=== PATIENT | female | born 1950 | race African-American/Black ===

== ENCOUNTER 2020-08-25 12:25 | Inpatient (IN) ==
[2020-08-25] MEDS ORDERED: SODIUM CHLORIDE 0.9% 1,000 ML IV STA (14:23)
[2020-08-25 15:00] LABS: Basophils % 0.3 % (0.0-0.8); Eosinophils % 0.3 % (0.00-10.9); Hematocrit 44.8 VOL% (35.7-47.0); Hemoglobin 15.7 GM/DL (12.0-16.0); Immature Granulocytes % 0.3 %; Immature Granulocytes Absolute 0.02 #; Lymphocytes # 1.8 10*3/uL (1.4-4.0); Lymphocytes % 27.9 % (21.3-54.2); Mean Corpuscular Volume 83.9 FL (87-102); Mean Platelet Volume 10.1 FL (9.6-12.0); Monocytes % 6.7 % (1.7-12.7); Neutrophils % 64.5 % (38.7-73.9); Platelet Count 177 T/CUMM (130-400); Red Blood Count 5.34 MC/CUMM (3.8-5.5); Red Cell Distribution Width 12.8 % (9.3-17.3); White Blood Count 6.5 T/CUMM (4-12)
[2020-08-25 15:21] LABS: PT Patient Result 11.1 SECS (9.8-11.9); Partial Thromboplastin Time 24.5 SECS (23.9-33.8)
[2020-08-25 15:23] LABS: Albumin 3.3 G/DL (3.4-5.0); Bilirubin,Total 0.4 MG/DL (0.2-1.0); Osmolality,Calculated 283.4 MOS/KG (273-304); Total Protein 7.1 G/DL (6.4-8.3)
[2020-08-25 16:09] LABS: Bilirubin,Urine Negative (Negative); Blood, Urine Small mg/dL (Negative); Glucose,Urine (UA) Negative (Negative); Ketones,Urine 5 mg/dL (Negative); Mucus,Urine Many /LPF (Occasional); Nitrite,Urine Negative (Negative); Protein,Urine 30 MG/DL; RBC,Urine 28 /HPF (0-4); Squamous Epithelial Cell,Urine Occasional /HPF (0-10); Urine Appearance Slightly Hazy (Clear); Urine Color Yellow (Yellow); Urine Specific Gravity 1.026 (1.001-1.035); Urine Urobilinogen < 2.0 EU/DL (0.2-1.0); WBC,Urine 15 /HPF (0-6)
[2020-08-25 16:12] LABS: Barbiturates Screen,Urine Negative (Negative); Benzodiazepines Screen,Urine Negative (Negative); Cannabinoid Screen,Urine Negative (Negative); Opiate Screen,Urine Negative (Negative); Phencyclidine Screen,Urine Negative (Negative)
[2020-08-25] MEDS ORDERED: ACETAMINOPHEN 325 MG TABLET PO PRN (18:41)
[2020-08-25] MEDS ORDERED: ONDANSETRON 4 MG/2 ML VIAL IV PRN (18:41)
[2020-08-25] MEDS ORDERED: GLUCAGON 1 MG VIAL IM PRN ×2 (18:41)
[2020-08-25] MEDS ORDERED: DEXTROSE 50% 25 GM/50 ML VIAL IV PRN ×2 (18:41)
[2020-08-25] MEDS ORDERED: SODIUM CHLORIDE 0.9% 100 ML IV ONE (20:07)
[2020-08-25] MEDS: cefTRIAXone 1,000 MG in SYRINGE 1 EACH IV SCH (20:15)
[2020-08-25] MEDS: SODIUM CHLOR 0.45% KCL 20 MEQ 20 MEQ/1,000 ML BAG IV SCH (21:52)
[2020-08-25] MEDS: INSULIN LISPRO 100 UNIT/ML SUBCUT SCH (21:52)
[2020-08-25] MEDS: hydrALAZINE 20 MG/1 ML VIAL IV PRN (22:13)
[2020-08-26] MEDS: SODIUM CHLOR 0.45% KCL 20 MEQ 20 MEQ/1,000 ML BAG IV SCH ×2 (06:00→15:31)
[2020-08-26 06:38] LABS: Basophils % 0.3 % (0.0-0.8); Eosinophils % 0.5 % (0.00-10.9); Hematocrit 40.9 VOL% (35.7-47.0); Hemoglobin 13.9 GM/DL (12.0-16.0); Immature Granulocytes % 1.6 %; Lymphocytes # 1.1 10*3/uL (1.4-4.0); Lymphocytes % 17.1 % (21.3-54.2); Mean Corpuscular Volume 84.7 FL (87-102); Mean Platelet Volume 10.4 FL (9.6-12.0); Monocytes % 3.8 % (1.7-12.7); Neutrophils % 76.7 % (38.7-73.9); Platelet Count 143 T/CUMM (130-400); Red Blood Count 4.83 MC/CUMM (3.8-5.5); Red Cell Distribution Width 12.8 % (9.3-17.3); White Blood Count 6.3 T/CUMM (4-12)
[2020-08-26 07:02] LABS: Calcium 8.4 MG/DL (8.5-10.1); Osmolality,Calculated 280.4 MOS/KG (273-304); Risk Ratio 2.14; Thyroid Stimulating Hormone 0.587 uIU/ml (0.358-3.74); VLDL CHOLESTEROL 14.4 MG/DL
[2020-08-26] MEDS: INSULIN LISPRO 100 UNIT/ML SUBCUT SCH ×4 (07:29→21:12)
[2020-08-26] MEDS: LISINOPRIL/HCTZ 10-12.5 MG TABLET PO SCH (08:54)
[2020-08-26] MEDS: PANTOPRAZOLE 40 MG TABLET PO SCH (08:54)
[2020-08-26] MEDS: MENTHOL/ZINC OXIDE OINT 71 GM JAR TOP SCH ×2 (15:31→21:11)
[2020-08-26] MEDS ORDERED: ENOXAPARIN 40 MG/0.4 ML SYRINGE SUBCUT SCH (17:00)
[2020-08-26] MEDS: ENOXAPARIN 40 MG/0.4 ML SYRINGE SUBCUT SCH (17:15)
[2020-08-26] MEDS: lisinopriL 20 MG TABLET PO SCH (17:15)
[2020-08-26] MEDS: cefTRIAXone 1,000 MG in SYRINGE 1 EACH IV SCH (18:50)
[2020-08-26] MEDS: DEXAMETHASONE 0.1% OPH SOLN 5 ML BOTTLE LEFT EYE SCH ×2 (18:50→21:12)
[2020-08-26] MEDS: METOPROLOL TARTRATE 100 MG TABLET PO SCH (21:12)
[2020-08-26] MEDS: OFLOXACIN 0.3% OPH SOLN 5 ML BOTTLE LEFT EYE SCH (21:12)
[2020-08-26] MEDS: ATORVASTATIN 10 MG TABLET PO SCH (21:12)
[2020-08-27] MEDS: SODIUM CHLOR 0.45% KCL 20 MEQ 20 MEQ/1,000 ML BAG IV SCH ×4 (00:59→21:35)
[2020-08-27] MEDS: INSULIN LISPRO 100 UNIT/ML SUBCUT SCH ×4 (07:21→21:41)
[2020-08-27] MEDS ORDERED: ASPIRIN 325 MG TABLET PO SCH (09:00)
[2020-08-27] MEDS: MENTHOL/ZINC OXIDE OINT 71 GM JAR TOP SCH ×2 (09:05→21:35)
[2020-08-27] MEDS: PANTOPRAZOLE 40 MG TABLET PO SCH (10:01)
[2020-08-27] MEDS: METOPROLOL TARTRATE 100 MG TABLET PO SCH ×2 (10:01→20:37)
[2020-08-27] MEDS: glipiZIDE 5 MG TABLET PO SCH (10:01)
[2020-08-27] MEDS: ASPIRIN EC 81 MG TABLET PO SCH (10:01)
[2020-08-27] MEDS: DEXAMETHASONE 0.1% OPH SOLN 5 ML BOTTLE LEFT EYE SCH ×4 (10:03→21:35)
[2020-08-27] MEDS: OFLOXACIN 0.3% OPH SOLN 5 ML BOTTLE LEFT EYE SCH ×2 (10:03→21:35)
[2020-08-27] MEDS: LISINOPRIL/HCTZ 10-12.5 MG TABLET PO SCH (10:05)
[2020-08-27] MEDS: lisinopriL 20 MG TABLET PO SCH (11:38)
[2020-08-27] MEDS: ENOXAPARIN 40 MG/0.4 ML SYRINGE SUBCUT SCH (18:18)
[2020-08-27] MEDS: cefTRIAXone 1,000 MG in SYRINGE 1 EACH IV SCH (18:24)
[2020-08-27] MEDS: ATORVASTATIN 10 MG TABLET PO SCH (20:38)
[2020-08-28] MEDS: hydrALAZINE 20 MG/1 ML VIAL IV PRN (04:17)
[2020-08-28 05:25] LABS: Basophils % 0.6 % (0.0-0.8); Eosinophils # 0.1 10*3/uL (0.0-0.87); Hematocrit 43.9 VOL% (35.7-47.0); Immature Granulocytes % 0.2 %; Immature Granulocytes Absolute 0.01 #; Lymphocytes # 1.4 10*3/uL (1.4-4.0); Lymphocytes % 28.2 % (21.3-54.2); Mean Corpuscular HGB Conc 34.2 GM/DL (32-36); Mean Corpuscular Volume 83.9 FL (87-102); Mean Platelet Volume 10.1 FL (9.6-12.0); Monocytes % 6.7 % (1.7-12.7); Neutrophils % 63.3 % (38.7-73.9); Platelet Count 188 T/CUMM (130-400); Red Blood Count 5.23 MC/CUMM (3.8-5.5); Red Cell Distribution Width 12.5 % (9.3-17.3); White Blood Count 5.1 T/CUMM (4-12)
[2020-08-28] MEDS: SODIUM CHLOR 0.45% KCL 20 MEQ 20 MEQ/1,000 ML BAG IV SCH ×2 (05:41→15:09)
[2020-08-28 05:56] LABS: Calcium 8.9 MG/DL (8.5-10.1); Osmolality,Calculated 277.5 MOS/KG (273-304)
[2020-08-28] MEDS: INSULIN LISPRO 100 UNIT/ML SUBCUT SCH ×4 (07:29→20:54)
[2020-08-28] MEDS: LISINOPRIL/HCTZ 10-12.5 MG TABLET PO SCH (08:58)
[2020-08-28] MEDS: lisinopriL 20 MG TABLET PO SCH (08:58)
[2020-08-28] MEDS: ASPIRIN EC 81 MG TABLET PO SCH (08:59)
[2020-08-28] MEDS: OFLOXACIN 0.3% OPH SOLN 5 ML BOTTLE LEFT EYE SCH ×2 (08:59→20:55)
[2020-08-28] MEDS: METOPROLOL TARTRATE 100 MG TABLET PO SCH ×2 (08:59→20:54)
[2020-08-28] MEDS: glipiZIDE 5 MG TABLET PO SCH (08:59)
[2020-08-28] MEDS: PANTOPRAZOLE 40 MG TABLET PO SCH (08:59)
[2020-08-28] MEDS: MENTHOL/ZINC OXIDE OINT 71 GM JAR TOP SCH ×2 (09:00→20:55)
[2020-08-28] MEDS: DEXAMETHASONE 0.1% OPH SOLN 5 ML BOTTLE LEFT EYE SCH ×4 (09:00→20:55)
[2020-08-28] MEDS: ENOXAPARIN 40 MG/0.4 ML SYRINGE SUBCUT SCH (18:08)
[2020-08-28] MEDS: cefTRIAXone 1,000 MG in SYRINGE 1 EACH IV SCH (19:20)
[2020-08-28] MEDS: ATORVASTATIN 10 MG TABLET PO SCH (20:54)
[2020-08-29] MEDS: SODIUM CHLOR 0.45% KCL 20 MEQ 20 MEQ/1,000 ML BAG IV SCH ×4 (00:22→20:58)
[2020-08-29] MEDS: hydrALAZINE 20 MG/1 ML VIAL IV PRN ×2 (02:21→18:28)
[2020-08-29 06:16] LABS: Basophils % 0.4 % (0.0-0.8); Eosinophils % 0.6 % (0.00-10.9); Hematocrit 43.8 VOL% (35.7-47.0); Immature Granulocytes % 0.4 %; Immature Granulocytes Absolute 0.02 #; Lymphocytes # 1.7 10*3/uL (1.4-4.0); Lymphocytes % 34.9 % (21.3-54.2); Mean Corpuscular HGB Conc 34.2 GM/DL (32-36); Mean Corpuscular Volume 84.6 FL (87-102); Mean Platelet Volume 10.4 FL (9.6-12.0); Monocytes % 8.3 % (1.7-12.7); Neutrophils % 55.4 % (38.7-73.9); Platelet Count 221 T/CUMM (130-400); Red Blood Count 5.18 MC/CUMM (3.8-5.5); Red Cell Distribution Width 12.6 % (9.3-17.3)
[2020-08-29 07:09] LABS: Osmolality,Calculated 278.4 MOS/KG (273-304)
[2020-08-29] MEDS: INSULIN LISPRO 100 UNIT/ML SUBCUT SCH ×4 (09:00→21:00)
[2020-08-29] MEDS: glipiZIDE 5 MG TABLET PO SCH (09:01)
[2020-08-29] MEDS: DEXAMETHASONE 0.1% OPH SOLN 5 ML BOTTLE LEFT EYE SCH ×4 (09:01→20:59)
[2020-08-29] MEDS: MENTHOL/ZINC OXIDE OINT 71 GM JAR TOP SCH ×2 (09:01→20:59)
[2020-08-29] MEDS: ASPIRIN EC 81 MG TABLET PO SCH (09:01)
[2020-08-29] MEDS: OFLOXACIN 0.3% OPH SOLN 5 ML BOTTLE LEFT EYE SCH ×2 (09:02→20:59)
[2020-08-29] MEDS: PANTOPRAZOLE 40 MG TABLET PO SCH (09:02)
[2020-08-29] MEDS: METOPROLOL TARTRATE 100 MG TABLET PO SCH ×2 (09:02→20:59)
[2020-08-29] MEDS: lisinopriL 20 MG TABLET PO SCH (09:02)
[2020-08-29] MEDS: LISINOPRIL/HCTZ 10-12.5 MG TABLET PO SCH (09:02)
[2020-08-29] MEDS: ENOXAPARIN 40 MG/0.4 ML SYRINGE SUBCUT SCH (17:30)
[2020-08-29] MEDS: cefTRIAXone 1,000 MG in SYRINGE 1 EACH IV SCH (18:31)
[2020-08-29] MEDS ORDERED: LACTULOSE 20 GM/30 ML UDCUP PO PRN (19:05)
[2020-08-29] MEDS: ATORVASTATIN 10 MG TABLET PO SCH (20:59)
[2020-08-30 05:36] LABS: Basophils % 0.6 % (0.0-0.8); Eosinophils % 0.6 % (0.00-10.9); Hematocrit 43.5 VOL% (35.7-47.0); Hemoglobin 14.8 GM/DL (12.0-16.0); Immature Granulocytes % 0.4 %; Immature Granulocytes Absolute 0.02 #; Lymphocytes # 1.6 10*3/uL (1.4-4.0); Mean Corpuscular Volume 84.8 FL (87-102); Mean Platelet Volume 9.9 FL (9.6-12.0); Monocytes % 7.8 % (1.7-12.7); Neutrophils % 61.6 % (38.7-73.9); Platelet Count 237 T/CUMM (130-400); Red Blood Count 5.13 MC/CUMM (3.8-5.5); Red Cell Distribution Width 12.9 % (9.3-17.3); White Blood Count 5.4 T/CUMM (4-12)
[2020-08-30 05:54] LABS: Calcium 9.1 MG/DL (8.5-10.1); Osmolality,Calculated 275.7 MOS/KG (273-304)
[2020-08-30] MEDS: lisinopriL 20 MG TABLET PO SCH (09:54)
[2020-08-30] MEDS: ASPIRIN EC 81 MG TABLET PO SCH (09:54)
[2020-08-30] MEDS: LISINOPRIL/HCTZ 10-12.5 MG TABLET PO SCH (09:54)
[2020-08-30] MEDS: MENTHOL/ZINC OXIDE OINT 71 GM JAR TOP SCH ×2 (09:55→21:15)
[2020-08-30] MEDS: PANTOPRAZOLE 40 MG TABLET PO SCH (09:55)
[2020-08-30] MEDS: OFLOXACIN 0.3% OPH SOLN 5 ML BOTTLE LEFT EYE SCH ×2 (09:55→21:15)
[2020-08-30] MEDS: METOPROLOL TARTRATE 100 MG TABLET PO SCH ×2 (09:55→21:15)
[2020-08-30] MEDS: glipiZIDE 5 MG TABLET PO SCH (09:55)
[2020-08-30] MEDS: DEXAMETHASONE 0.1% OPH SOLN 5 ML BOTTLE LEFT EYE SCH ×4 (09:56→21:15)
[2020-08-30] MEDS: INSULIN LISPRO 100 UNIT/ML SUBCUT SCH ×4 (10:19→21:15)
[2020-08-30] MEDS: SODIUM CHLOR 0.45% KCL 20 MEQ 20 MEQ/1,000 ML BAG IV SCH ×3 (14:24→21:24)
[2020-08-30] MEDS: ENOXAPARIN 40 MG/0.4 ML SYRINGE SUBCUT SCH (17:30)
[2020-08-30] MEDS: ATORVASTATIN 10 MG TABLET PO SCH (21:15)
[2020-08-31 04:14] LABS: Basophils % 0.5 % (0.0-0.8); Eosinophils # 0.1 10*3/uL (0.0-0.87); Eosinophils % 1.2 % (0.00-10.9); Hemoglobin 13.3 GM/DL (12.0-16.0); Immature Granulocytes % 0.2 %; Immature Granulocytes Absolute 0.01 #; Lymphocytes # 1.6 10*3/uL (1.4-4.0); Lymphocytes % 36.6 % (21.3-54.2); Mean Corpuscular HGB Conc 34.1 GM/DL (32-36); Mean Corpuscular Volume 85.2 FL (87-102); Mean Platelet Volume 10.2 FL (9.6-12.0); Monocytes % 7.8 % (1.7-12.7); Neutrophils % 53.7 % (38.7-73.9); Platelet Count 244 T/CUMM (130-400); Red Blood Count 4.58 MC/CUMM (3.8-5.5); White Blood Count 4.3 T/CUMM (4-12)
[2020-08-31 04:33] LABS: Calcium 8.7 MG/DL (8.5-10.1); Osmolality,Calculated 277.5 MOS/KG (273-304)
[2020-08-31] MEDS: SODIUM CHLOR 0.45% KCL 20 MEQ 20 MEQ/1,000 ML BAG IV SCH ×3 (05:34→23:22)
[2020-08-31] MEDS: INSULIN LISPRO 100 UNIT/ML SUBCUT SCH ×4 (08:08→20:53)
[2020-08-31] MEDS: MENTHOL/ZINC OXIDE OINT 71 GM JAR TOP SCH ×2 (09:19→20:54)
[2020-08-31] MEDS: DEXAMETHASONE 0.1% OPH SOLN 5 ML BOTTLE LEFT EYE SCH ×4 (09:19→20:54)
[2020-08-31] MEDS: OFLOXACIN 0.3% OPH SOLN 5 ML BOTTLE LEFT EYE SCH ×2 (09:19→20:54)
[2020-08-31] MEDS: LISINOPRIL/HCTZ 10-12.5 MG TABLET PO SCH (09:20)
[2020-08-31] MEDS: PANTOPRAZOLE 40 MG TABLET PO SCH (09:20)
[2020-08-31] MEDS: METOPROLOL TARTRATE 100 MG TABLET PO SCH ×2 (09:20→20:53)
[2020-08-31] MEDS: glipiZIDE 5 MG TABLET PO SCH (09:20)
[2020-08-31] MEDS: lisinopriL 20 MG TABLET PO SCH (09:20)
[2020-08-31] MEDS: ASPIRIN EC 81 MG TABLET PO SCH (09:20)
[2020-08-31] MEDS: TAMSULOSIN 0.4 MG CAPSULE PO SCH (12:35)
[2020-08-31] MEDS: ENOXAPARIN 40 MG/0.4 ML SYRINGE SUBCUT SCH (18:15)
[2020-08-31] MEDS: ATORVASTATIN 10 MG TABLET PO SCH (20:54)
[2020-09-01 06:10] LABS: Basophils % 0.2 % (0.0-0.8); Eosinophils % 0.7 % (0.00-10.9); Hematocrit 40.8 VOL% (35.7-47.0); Hemoglobin 13.7 GM/DL (12.0-16.0); Immature Granulocytes % 0.2 %; Immature Granulocytes Absolute 0.01 #; Lymphocytes # 1.8 10*3/uL (1.4-4.0); Lymphocytes % 40.9 % (21.3-54.2); Mean Corpuscular HGB Conc 33.6 GM/DL (32-36); Mean Corpuscular Volume 85.5 FL (87-102); Mean Platelet Volume 10.4 FL (9.6-12.0); Platelet Count 246 T/CUMM (130-400); Red Blood Count 4.77 MC/CUMM (3.8-5.5); Red Cell Distribution Width 12.8 % (9.3-17.3); White Blood Count 4.4 T/CUMM (4-12)
[2020-09-01 06:23] LABS: Osmolality,Calculated 277.5 MOS/KG (273-304)
[2020-09-01] MEDS: SODIUM CHLOR 0.45% KCL 20 MEQ 20 MEQ/1,000 ML BAG IV SCH ×3 (06:42→21:54)
[2020-09-01] MEDS: INSULIN LISPRO 100 UNIT/ML SUBCUT SCH ×4 (10:14→21:34)
[2020-09-01] MEDS: TAMSULOSIN 0.4 MG CAPSULE PO SCH (12:21)
[2020-09-01] MEDS: PANTOPRAZOLE 40 MG TABLET PO SCH (12:21)
[2020-09-01] MEDS: LISINOPRIL/HCTZ 10-12.5 MG TABLET PO SCH (12:21)
[2020-09-01] MEDS: ASPIRIN EC 81 MG TABLET PO SCH (12:22)
[2020-09-01] MEDS: lisinopriL 20 MG TABLET PO SCH (12:22)
[2020-09-01] MEDS: METOPROLOL TARTRATE 100 MG TABLET PO SCH ×2 (12:22→21:33)
[2020-09-01] MEDS: glipiZIDE 5 MG TABLET PO SCH (12:22)
[2020-09-01] MEDS: MENTHOL/ZINC OXIDE OINT 71 GM JAR TOP SCH ×2 (14:44→21:33)
[2020-09-01] MEDS: OFLOXACIN 0.3% OPH SOLN 5 ML BOTTLE LEFT EYE SCH ×2 (14:45→21:33)
[2020-09-01] MEDS: DEXAMETHASONE 0.1% OPH SOLN 5 ML BOTTLE LEFT EYE SCH ×4 (14:45→21:33)
[2020-09-01] MEDS: ENOXAPARIN 40 MG/0.4 ML SYRINGE SUBCUT SCH (20:06)
[2020-09-01] MEDS: ATORVASTATIN 10 MG TABLET PO SCH (21:33)
[2020-09-02 05:49] LABS: Basophils % 0.5 % (0.0-0.8); Eosinophils # 0.1 10*3/uL (0.0-0.87); Eosinophils % 1.2 % (0.00-10.9); Hematocrit 36.4 VOL% (35.7-47.0); Hemoglobin 12.1 GM/DL (12.0-16.0); Immature Granulocytes % 0.2 %; Immature Granulocytes Absolute 0.01 #; Lymphocytes # 1.5 10*3/uL (1.4-4.0); Mean Corpuscular HGB Conc 33.2 GM/DL (32-36); Mean Corpuscular Volume 86.1 FL (87-102); Mean Platelet Volume 10.3 FL (9.6-12.0); Monocytes % 5.9 % (1.7-12.7); NRBC # 0.03 10*3/uL; Neutrophils % 56.2 % (38.7-73.9); Platelet Count 239 T/CUMM (130-400); Red Blood Count 4.23 MC/CUMM (3.8-5.5); White Blood Count 4.1 T/CUMM (4-12)
[2020-09-02 06:11] LABS: Osmolality,Calculated 276.5 MOS/KG (273-304)
[2020-09-02] MEDS: SODIUM CHLOR 0.45% KCL 20 MEQ 20 MEQ/1,000 ML BAG IV SCH ×2 (06:18→16:27)
[2020-09-02] MEDS: INSULIN LISPRO 100 UNIT/ML SUBCUT SCH ×4 (08:18→21:27)
[2020-09-02] MEDS: lisinopriL 20 MG TABLET PO SCH (11:23)
[2020-09-02] MEDS: TAMSULOSIN 0.4 MG CAPSULE PO SCH (11:23)
[2020-09-02] MEDS: LISINOPRIL/HCTZ 10-12.5 MG TABLET PO SCH (11:23)
[2020-09-02] MEDS: METOPROLOL TARTRATE 100 MG TABLET PO SCH ×2 (11:23→21:26)
[2020-09-02] MEDS: OFLOXACIN 0.3% OPH SOLN 5 ML BOTTLE LEFT EYE SCH ×2 (11:23→21:26)
[2020-09-02] MEDS: DEXAMETHASONE 0.1% OPH SOLN 5 ML BOTTLE LEFT EYE SCH ×4 (11:24→21:26)
[2020-09-02] MEDS: glipiZIDE 5 MG TABLET PO SCH (11:24)
[2020-09-02] MEDS: MENTHOL/ZINC OXIDE OINT 71 GM JAR TOP SCH ×2 (11:24→21:26)
[2020-09-02] MEDS: ASPIRIN EC 81 MG TABLET PO SCH (11:24)
[2020-09-02] MEDS: CHOLECALCIFEROL 1,000 UNIT TABLET PO SCH (11:24)
[2020-09-02] MEDS: PANTOPRAZOLE 40 MG TABLET PO SCH (11:25)
[2020-09-02] MEDS: ENOXAPARIN 40 MG/0.4 ML SYRINGE SUBCUT SCH (19:01)
[2020-09-02] MEDS: ATORVASTATIN 10 MG TABLET PO SCH (21:26)
[2020-09-03] MEDS: SODIUM CHLOR 0.45% KCL 20 MEQ 20 MEQ/1,000 ML BAG IV SCH ×4 (00:39→20:28)
[2020-09-03 05:58] LABS: Basophils % 0.5 % (0.0-0.8); Eosinophils # 0.1 10*3/uL (0.0-0.87); Eosinophils % 1.6 % (0.00-10.9); Hematocrit 39.2 VOL% (35.7-47.0); Hemoglobin 13.1 GM/DL (12.0-16.0); Immature Granulocytes % 0.2 %; Immature Granulocytes Absolute 0.01 #; Lymphocytes # 1.7 10*3/uL (1.4-4.0); Lymphocytes % 38.5 % (21.3-54.2); Mean Corpuscular HGB Conc 33.4 GM/DL (32-36); Mean Platelet Volume 10.2 FL (9.6-12.0); Monocytes % 6.8 % (1.7-12.7); Neutrophils % 52.4 % (38.7-73.9); Platelet Count 259 T/CUMM (130-400); Red Blood Count 4.56 MC/CUMM (3.8-5.5); Red Cell Distribution Width 12.9 % (9.3-17.3); White Blood Count 4.4 T/CUMM (4-12)
[2020-09-03 06:18] LABS: Osmolality,Calculated 277.5 MOS/KG (273-304)
[2020-09-03] MEDS: METOPROLOL TARTRATE 100 MG TABLET PO SCH ×2 (11:05→20:30)
[2020-09-03] MEDS: LISINOPRIL/HCTZ 10-12.5 MG TABLET PO SCH (11:05)
[2020-09-03] MEDS: ASPIRIN EC 81 MG TABLET PO SCH (11:05)
[2020-09-03] MEDS: TAMSULOSIN 0.4 MG CAPSULE PO SCH (11:05)
[2020-09-03] MEDS: CHOLECALCIFEROL 1,000 UNIT TABLET PO SCH (11:05)
[2020-09-03] MEDS: PANTOPRAZOLE 40 MG TABLET PO SCH (11:05)
[2020-09-03] MEDS: lisinopriL 20 MG TABLET PO SCH (11:06)
[2020-09-03] MEDS: glipiZIDE 5 MG TABLET PO SCH (11:06)
[2020-09-03] MEDS: MENTHOL/ZINC OXIDE OINT 71 GM JAR TOP SCH ×2 (11:07→20:37)
[2020-09-03] MEDS: DEXAMETHASONE 0.1% OPH SOLN 5 ML BOTTLE LEFT EYE SCH ×4 (11:07→20:34)
[2020-09-03] MEDS: OFLOXACIN 0.3% OPH SOLN 5 ML BOTTLE LEFT EYE SCH ×2 (11:07→20:35)
[2020-09-03] MEDS: INSULIN LISPRO 100 UNIT/ML SUBCUT SCH ×4 (11:07→21:32)
[2020-09-03] MEDS: CARBIDOPA/LEVODOPA 25-100 MG TABLET PO SCH ×2 (15:34→17:17)
[2020-09-03] MEDS: ENOXAPARIN 40 MG/0.4 ML SYRINGE SUBCUT SCH (17:17)
[2020-09-03] MEDS: ATORVASTATIN 10 MG TABLET PO SCH (20:30)
[2020-09-04 06:35] LABS: Basophils % 0.4 % (0.0-0.8); Eosinophils # 0.1 10*3/uL (0.0-0.87); Eosinophils % 1.6 % (0.00-10.9); Hematocrit 42.1 VOL% (35.7-47.0); Hemoglobin 14.3 GM/DL (12.0-16.0); Immature Granulocytes % 0.7 %; Immature Granulocytes Absolute 0.03 #; Lymphocytes # 1.7 10*3/uL (1.4-4.0); Lymphocytes % 37.6 % (21.3-54.2); Mean Corpuscular Volume 85.4 FL (87-102); Mean Platelet Volume 9.8 FL (9.6-12.0); Monocytes % 6.2 % (1.7-12.7); Neutrophils % 53.5 % (38.7-73.9); Platelet Count 277 T/CUMM (130-400); Red Blood Count 4.93 MC/CUMM (3.8-5.5); Red Cell Distribution Width 13.1 % (9.3-17.3); White Blood Count 4.5 T/CUMM (4-12)
[2020-09-04] MEDS: SODIUM CHLOR 0.45% KCL 20 MEQ 20 MEQ/1,000 ML BAG IV SCH ×2 (06:40→16:07)
[2020-09-04 06:44] LABS: Calcium 9.4 MG/DL (8.5-10.1); Osmolality,Calculated 278.4 MOS/KG (273-304)
[2020-09-04] MEDS: INSULIN LISPRO 100 UNIT/ML SUBCUT SCH ×4 (08:42→20:43)
[2020-09-04] MEDS: PANTOPRAZOLE 40 MG TABLET PO SCH (08:43)
[2020-09-04] MEDS: CARBIDOPA/LEVODOPA 25-100 MG TABLET PO SCH ×3 (08:44→16:11)
[2020-09-04] MEDS: lisinopriL 20 MG TABLET PO SCH (08:44)
[2020-09-04] MEDS: METOPROLOL TARTRATE 100 MG TABLET PO SCH ×2 (08:44→20:36)
[2020-09-04] MEDS: TAMSULOSIN 0.4 MG CAPSULE PO SCH (08:44)
[2020-09-04] MEDS: glipiZIDE 5 MG TABLET PO SCH (08:44)
[2020-09-04] MEDS: ASPIRIN EC 81 MG TABLET PO SCH (08:45)
[2020-09-04] MEDS: MENTHOL/ZINC OXIDE OINT 71 GM JAR TOP SCH ×2 (08:45→20:42)
[2020-09-04] MEDS: DEXAMETHASONE 0.1% OPH SOLN 5 ML BOTTLE LEFT EYE SCH ×4 (08:45→20:42)
[2020-09-04] MEDS: LISINOPRIL/HCTZ 10-12.5 MG TABLET PO SCH (08:45)
[2020-09-04] MEDS: CHOLECALCIFEROL 1,000 UNIT TABLET PO SCH (08:45)
[2020-09-04] MEDS: OFLOXACIN 0.3% OPH SOLN 5 ML BOTTLE LEFT EYE SCH ×2 (08:46→20:42)
[2020-09-04] MEDS: ENOXAPARIN 40 MG/0.4 ML SYRINGE SUBCUT SCH (17:16)
[2020-09-04] MEDS: ATORVASTATIN 10 MG TABLET PO SCH (20:36)
[2020-09-05] MEDS: SODIUM CHLOR 0.45% KCL 20 MEQ 20 MEQ/1,000 ML BAG IV SCH ×4 (00:14→21:00)
[2020-09-05 05:57] LABS: Basophils % 0.7 % (0.0-0.8); Eosinophils # 0.1 10*3/uL (0.0-0.87); Eosinophils % 1.4 % (0.00-10.9); Hematocrit 39.8 VOL% (35.7-47.0); Hemoglobin 13.5 GM/DL (12.0-16.0); Lymphocytes # 1.7 10*3/uL (1.4-4.0); Lymphocytes % 39.2 % (21.3-54.2); Mean Corpuscular HGB Conc 33.9 GM/DL (32-36); Mean Platelet Volume 10.3 FL (9.6-12.0); Monocytes % 6.4 % (1.7-12.7); Neutrophils % 52.3 % (38.7-73.9); Platelet Count 267 T/CUMM (130-400); Red Blood Count 4.63 MC/CUMM (3.8-5.5); White Blood Count 4.2 T/CUMM (4-12)
[2020-09-05 05:59] LABS: Calcium 9.2 MG/DL (8.5-10.1); Osmolality,Calculated 275.7 MOS/KG (273-304)
[2020-09-05] MEDS: MENTHOL/ZINC OXIDE OINT 71 GM JAR TOP SCH ×2 (09:20→20:58)
[2020-09-05] MEDS: LISINOPRIL/HCTZ 10-12.5 MG TABLET PO SCH (09:21)
[2020-09-05] MEDS: INSULIN LISPRO 100 UNIT/ML SUBCUT SCH ×4 (09:21→21:08)
[2020-09-05] MEDS: lisinopriL 20 MG TABLET PO SCH (09:21)
[2020-09-05] MEDS: METOPROLOL TARTRATE 100 MG TABLET PO SCH ×2 (09:21→20:58)
[2020-09-05] MEDS: glipiZIDE 5 MG TABLET PO SCH (09:21)
[2020-09-05] MEDS: ASPIRIN EC 81 MG TABLET PO SCH (09:21)
[2020-09-05] MEDS: CHOLECALCIFEROL 1,000 UNIT TABLET PO SCH (09:21)
[2020-09-05] MEDS: CARBIDOPA/LEVODOPA 25-100 MG TABLET PO SCH ×3 (09:22→17:35)
[2020-09-05] MEDS: PANTOPRAZOLE 40 MG TABLET PO SCH (09:22)
[2020-09-05] MEDS: OFLOXACIN 0.3% OPH SOLN 5 ML BOTTLE LEFT EYE SCH ×2 (09:22→20:58)
[2020-09-05] MEDS: DEXAMETHASONE 0.1% OPH SOLN 5 ML BOTTLE LEFT EYE SCH ×4 (09:22→20:58)
[2020-09-05] MEDS: TAMSULOSIN 0.4 MG CAPSULE PO SCH (09:22)
[2020-09-05] MEDS: ENOXAPARIN 40 MG/0.4 ML SYRINGE SUBCUT SCH (17:35)
[2020-09-05] MEDS: ATORVASTATIN 10 MG TABLET PO SCH (20:58)
[2020-09-06] MEDS: SODIUM CHLOR 0.45% KCL 20 MEQ 20 MEQ/1,000 ML BAG IV SCH ×2 (04:06→12:36)
[2020-09-06] MEDS: INSULIN LISPRO 100 UNIT/ML SUBCUT SCH ×3 (07:10→16:46)
[2020-09-06] MEDS: DEXAMETHASONE 0.1% OPH SOLN 5 ML BOTTLE LEFT EYE SCH ×2 (09:08→12:36)
[2020-09-06] MEDS: MENTHOL/ZINC OXIDE OINT 71 GM JAR TOP SCH (09:08)
[2020-09-06] MEDS: TAMSULOSIN 0.4 MG CAPSULE PO SCH (09:08)
[2020-09-06] MEDS: LISINOPRIL/HCTZ 10-12.5 MG TABLET PO SCH (09:08)
[2020-09-06] MEDS: OFLOXACIN 0.3% OPH SOLN 5 ML BOTTLE LEFT EYE SCH (09:08)
[2020-09-06] MEDS: CARBIDOPA/LEVODOPA 25-100 MG TABLET PO SCH ×3 (09:09→16:21)
[2020-09-06] MEDS: METOPROLOL TARTRATE 100 MG TABLET PO SCH (09:09)
[2020-09-06] MEDS: PANTOPRAZOLE 40 MG TABLET PO SCH (09:09)
[2020-09-06] MEDS: lisinopriL 20 MG TABLET PO SCH (09:09)
[2020-09-06] MEDS: ASPIRIN EC 81 MG TABLET PO SCH (09:09)
[2020-09-06] MEDS: CHOLECALCIFEROL 1,000 UNIT TABLET PO SCH (09:09)
[2020-09-06] MEDS: glipiZIDE 5 MG TABLET PO SCH (09:09)
[2020-09-06 11:14] VITALS: BP 148/44
== END 2020-09-06 17:05 | DRG 57 ==
LOC: EDBD → EDUNIT# → N.ED 12:25 → N.EDINP 18:41 → SUATTDRO 18:43 → INTOOBSV 18:43 → N.3E 20:34
PROVIDERS: ADMIT Phlebology; ATTEND Internal Medicine